=== PATIENT | female | born 1980 | race African-American/Black ===

== ENCOUNTER 2021-07-21 18:23 | Observation (INO) | payer MEDICAID ==
[~2021-07-21] VITALS: Ht 167.6 cm; Wt 96.2 kg
[2021-07-21 20:40] LABS: BASOPHILS % 0.4 % (0.0-2.0); EOSINOPHILS % 0.7 % (0.0-5.0); HEMATOCRIT. 35.9 % (36.0-48.0); HEMOGLOBIN. 12.2 g/dL (12.0-16.0); LYMPHOCYTES % 25.3 % (20.0-50.0); MEAN CORPUSCULAR HEMOGLOBIN 30.9 pg (28.0-32.0); MEAN CORPUSCULAR VOLUME 90.6 fL (81.0-99.0); MEAN PLATELET VOLUME 9.6 fl (7.4-10.4); MONOCYTES % 10.9 % (2.0-8.0); NEUTROPHILS % 62.7 % (40.0-76.0); PLATELET 207 x1000/uL (130-400); RED BLOOD CELL COUNT 3.96 mill/uL (4.2-5.4); RED CELL DISTRIBUTION WIDTH 15.2 % (11.6-14.6)
[2021-07-21 20:43] LABS: CLARITY URINE CLEAR (CLEAR); COLOR URINE YELLOW (YELLOW); KETONES URINE NEGATIVE (NEGATIVE); LEUKOCYTE ESTERASE URINE NEGATIVE (NEGATIVE); NITRITE URINE NEGATIVE (NEGATIVE); OCCULT BLOOD URINE NEGATIVE (NEGATIVE); PROTEIN URINE NEGATIVE (NEGATIVE); SPECIFIC GRAVITY URINE 1.007 (1.005-1.030); UROBILINOGEN URINE 0.2 E.U./dL (0.2-1.0)
[2021-07-21 20:57] LABS: CHLORIDE 111 mEq/L (98-107)
[2021-07-21 20:59] LABS: D-DIMER 4.46 mg/L FEU (<0.50); INR 0.9; PARTIAL THROMBOPLASTIN TIME 28.9 sec (23.4-31.0); PROTHROMBIN TIME 9.8 sec (9.6-11.0)
[2021-07-21] MEDS ORDERED: PNV1TABL76 PO (22:10)
[2021-07-21] MEDS ORDERED: FOLI-43 PO (22:10)
[2021-07-21] MEDS ORDERED: ASPI-1497 PO (22:10)
[2021-07-21] MEDS ORDERED: BETAMETHASONE ACET/BETAMET 30 MG/5 ML VIAL IM NR (22:30)
== END 2021-07-21 23:20 | disposition home or self-care (01) ==
LOC: 8 EST LDRP 18:23
PROVIDERS: ADMIT Obstetrics & Gynecology; ATTEND Obstetrics & Gynecology
DX: O26.893 Other specified pregnancy related conditions, third trimester (principal); R03.0 Elevated blood-pressure reading, without diagnosis of hypertension; O09.523 Supervision of elderly multigravida, third trimester; Z79.01 Long term (current) use of anticoagulants; Z3A.35 35 weeks gestation of pregnancy
CPT/HCPCS: 59025; 76805; 76810; 76818; 80053; 81003; 84550; 85025; 85379; 85384; 85610; 85730; 96372; G0378; J0702; 76815; 99281

== ENCOUNTER 2021-07-22 22:48 | Observation (INO) | payer MEDICAID ==
[~2021-07-22] VITALS: Ht 167.6 cm; Wt 96.2 kg
[~2021-07-22 22:48] MED LIST: ASPI-1497 PO; FOLI-43 PO; PNV1TABL76 PO
[2021-07-22] MEDS ORDERED: BETAMETHASONE ACET/BETAMET 30 MG/5 ML VIAL IM NR (23:00)
== END 2021-07-22 23:30 | disposition home or self-care (01) ==
LOC: 8 EST LDRP 22:48
PROVIDERS: ADMIT Obstetrics & Gynecology; ATTEND Obstetrics & Gynecology
DX: O09.523 Supervision of elderly multigravida, third trimester (principal); Z3A.35 35 weeks gestation of pregnancy
CPT/HCPCS: 59025; 96372; G0378

== ENCOUNTER 2021-07-28 19:54 | Inpatient (IN) | payer MEDICAID ==
[~2021-07-28] VITALS: Ht 167.6 cm; Wt 96.2 kg
[2021-07-28] MEDS ORDERED: VIT1TABL62 PO (21:08)
[2021-07-28] MEDS ORDERED: FERR325T6 PO (21:08)
[2021-07-28] MEDS ORDERED: METHYLERGONOVINE MALEATE 0.2 MG/ML IM PRN (21:15)
[2021-07-28] MEDS ORDERED: DEXT 5%/LR + PITOCIN 20UNITS/L 1,000 ML IV SCH (21:15)
[2021-07-28] MEDS ORDERED: NALOXONE HCL 0.4 MG/ML 1ML VIAL IM PRN (21:15)
[2021-07-28] MEDS ORDERED: CARBOPROST TROMETHAMINE 250 MCG/ML AMPUL IM PRN (21:15)
[2021-07-28] MEDS: LACTATED RINGERS 1,000 ML IV SCH (21:30)
[2021-07-28 22:16] LABS: BASOPHILS % 0.4 % (0.0-2.0); EOSINOPHILS % 0.3 % (0.0-5.0); HEMATOCRIT. 34.7 % (36.0-48.0); LYMPHOCYTES % 27.8 % (20.0-50.0); MEAN CORPUSCULAR HEMOGLOBIN 30.7 pg (28.0-32.0); MEAN PLATELET VOLUME 9.6 fl (7.4-10.4); MONOCYTES % 9.5 % (2.0-8.0); PLATELET 210 x1000/uL (130-400); RED CELL DISTRIBUTION WIDTH 15.4 % (11.6-14.6)
[2021-07-28 22:17] LABS: CHLORIDE 108 mEq/L (98-107)
[2021-07-28 22:21] LABS: CLARITY URINE CLOUDY (CLEAR); COLOR URINE YELLOW (YELLOW); KETONES URINE 1+ (NEGATIVE); LEUKOCYTE ESTERASE URINE TRACE (NEGATIVE); NITRITE URINE NEGATIVE (NEGATIVE); OCCULT BLOOD URINE NEGATIVE (NEGATIVE); PROTEIN URINE 1+ (NEGATIVE); SPECIFIC GRAVITY URINE 1.012 (1.005-1.030)
[2021-07-28 22:25] LABS: INR 0.9; PARTIAL THROMBOPLASTIN TIME 27.6 sec (23.4-31.0); PROTHROMBIN TIME 9.9 sec (9.6-11.0)
[2021-07-28 22:49] LABS: *BARBITURATES SCREEN URINE NEGATIVE (NEGATIVE); *BENZODIAZEPINES SCREEN URINE NEGATIVE (NEGATIVE)
[2021-07-28 22:50] LABS: *AMPHETAMINES SCREEN URINE NEGATIVE (NEGATIVE); *COCAINE SCREEN URINE NEGATIVE (NEGATIVE); CANNABINOID URINE SCREEN NEGATIVE (NEGATIVE); METHADONE URINE SCREEN NEGATIVE (NEGATIVE); OPIATES URINE SCREEN NEGATIVE (NEGATIVE); PHENCYCLIDINE URINE SCREEN NEGATIVE (NEGATIVE)
[2021-07-29 07:29] LABS: HEPATITIS B SURFACE ANTIGEN NEGATIVE
[2021-07-29] MEDS: LACTATED RINGERS 1,000 ML IV SCH (08:59)
[2021-07-29] MEDS ORDERED: MORPHINE SULFATE/PF 1MG/ML 10ML AMP ONE (09:50)
[2021-07-29] MEDS ORDERED: FENTANYL CITRATE/PF 50MCG/ML 2ML VIAL ONE (09:50)
[2021-07-29] MEDS ORDERED: CEFAZOLIN SODIUM 1000MG/VIAL ONE (09:50)
[2021-07-29] MEDS ORDERED: MEPERIDINE HCL/PF 25MG/ML CPJ IV PRN (10:15)
[2021-07-29] MEDS ORDERED: DIPHENHYDRAMINE 50MG/ML VIAL IV PRN (10:15)
[2021-07-29] MEDS ORDERED: HYDROMORPHONE HCL/PF 2MG/ML CPJ IV PRN (10:15)
[2021-07-29] MEDS ORDERED: BUTORPHANOL TARTRATE 2 MG/ML VIAL IM PRN (10:30)
[2021-07-29] MEDS ORDERED: HYDROCODONE/ACETAMINOPHEN 5/325MG TABLET PO PRN (11:30)
[2021-07-29] MEDS ORDERED: LANOLIN OINT 7GM TUBE TOP PRN (11:30)
[2021-07-29] MEDS ORDERED: HEMORRHOIDAL SUPP PR PRN (11:30)
[2021-07-29] MEDS ORDERED: IBUPROFEN 400MG TABLET PO PRN (11:30)
[2021-07-29] MEDS ORDERED: DIPHENHYDRAMINE 25MG CAPSULE PO PRN (11:30)
[2021-07-29] MEDS: DEXT 5%/LR + PITOCIN 20UNITS/L 1,000 ML IV SCH ×2 (11:41→23:50)
[2021-07-29] MEDS: ONDANSETRON HCL 4MG/2ML INJ IV PRN ×2 (12:08→18:17)
[2021-07-29] MEDS: KETOROLAC 30MG/ML VIAL IV PRN ×2 (12:14→18:18)
[2021-07-29] MEDS ORDERED: LABETALOL HCL 5MG/ML VIAL 20ML IV PRN ×3 (13:15)
[2021-07-29] MEDS: MAGNESIUM 20 G PREMIX (L & D) 500 ML IV SCH ×2 (13:34→21:51)
[2021-07-29 18:15] VITALS: BP 150/110
[2021-07-29 18:30] VITALS: BP 153/104
[2021-07-29 18:45] VITALS: BP 144/103
[2021-07-29 20:00] VITALS: BP 155/93
[2021-07-29 21:00] VITALS: BP 148/100
[2021-07-29 23:30] VITALS: BP 146/99
[2021-07-30] VITALS (8 sets, daily range): BP systolic 140–150; BP diastolic 86–103
[2021-07-30 06:52] LABS: BASOPHILS % 0.1 % (0.0-2.0); EOSINOPHILS % 0.1 % (0.0-5.0); HEMATOCRIT. 33.5 % (36.0-48.0); HEMOGLOBIN. 11.3 g/dL (12.0-16.0); LYMPHOCYTES % 10.2 % (20.0-50.0); MEAN CORPUSCULAR HEMOGLOBIN 30.7 pg (28.0-32.0); MONOCYTES % 8.1 % (2.0-8.0); NEUTROPHILS % 81.5 % (40.0-76.0); PLATELET 176 x1000/uL (130-400); RED BLOOD CELL COUNT 3.68 mill/uL (4.2-5.4); RED CELL DISTRIBUTION WIDTH 15.1 % (11.6-14.6)
[2021-07-30] MEDS: MAGNESIUM 20 G PREMIX (L & D) 500 ML IV SCH (07:23)
[2021-07-30] MEDS: LABETALOL HCL 100MG TABLET PO SCH ×2 (07:47→23:40)
[2021-07-30] MEDS: SIMETHICONE 80MG TABLET CHEW PO SCH ×3 (08:49→21:28)
[2021-07-30] MEDS: PRENATAL VIT/FE FUMARATE/FA TABLET PO SCH (08:49)
[2021-07-30] MEDS: FERROUS SULFATE 325MG TABLET PO SCH ×2 (08:50→12:30)
[2021-07-30] MEDS: MAGNESIUM/ALUMINUM HYDROXIDE/SIMETHICONE 30ML UDC PO SCH ×3 (08:50→21:27)
[2021-07-30] MEDS: IBUPROFEN 800MG TABLET PO PRN ×2 (15:28→21:27)
[2021-07-30] MEDS: DOCUSATE SODIUM 100MG CAPSULE PO SCH (21:28)
[2021-07-31 03:00] VITALS: BP 143/83
[2021-07-31] MEDS: FERROUS SULFATE 325MG TABLET PO SCH ×4 (07:30→17:30)
[2021-07-31] MEDS: MAGNESIUM/ALUMINUM HYDROXIDE/SIMETHICONE 30ML UDC PO SCH ×5 (07:30→21:04)
[2021-07-31 08:00] VITALS: BP 151/94
[2021-07-31] MEDS: SIMETHICONE 80MG TABLET CHEW PO SCH ×5 (08:00→21:06)
[2021-07-31] MEDS: IBUPROFEN 800MG TABLET PO PRN ×3 (08:54→21:14)
[2021-07-31] MEDS: LABETALOL HCL 100MG TABLET PO SCH ×3 (08:55→22:22)
[2021-07-31] MEDS: PRENATAL VIT/FE FUMARATE/FA TABLET PO SCH (08:55)
[2021-07-31 10:00] VITALS: BP 144/90
[2021-07-31 12:17] VITALS: BP 137/91
[2021-07-31] MEDS: BISACODYL 10MG SUPP PR PRN (16:07)
[2021-07-31 17:19] VITALS: BP 140/89
[2021-07-31] MEDS: DOCUSATE SODIUM 100MG CAPSULE PO SCH (21:04)
[2021-07-31 22:00] VITALS: BP 135/85
[2021-08-01 05:29] VITALS: BP 125/85
[2021-08-01] MEDS: LABETALOL HCL 100MG TABLET PO SCH ×3 (05:29→22:12)
[2021-08-01] MEDS: FERROUS SULFATE 325MG TABLET PO SCH ×3 (07:30→17:30)
[2021-08-01 08:00] VITALS: BP 155/96
[2021-08-01] MEDS: MAGNESIUM/ALUMINUM HYDROXIDE/SIMETHICONE 30ML UDC PO SCH ×4 (09:54→22:10)
[2021-08-01] MEDS: PRENATAL VIT/FE FUMARATE/FA TABLET PO SCH (09:54)
[2021-08-01] MEDS: SIMETHICONE 80MG TABLET CHEW PO SCH ×4 (09:54→22:11)
[2021-08-01] MEDS: BISACODYL 10MG SUPP PR PRN (09:55)
[2021-08-01 12:00] VITALS: BP 136/82
[2021-08-01] MEDS: IBUPROFEN 800MG TABLET PO PRN ×2 (12:17→22:12)
[2021-08-01 16:00] VITALS: BP 132/85
[2021-08-01 20:00] VITALS: BP 155/89
[2021-08-01] MEDS: DOCUSATE SODIUM 100MG CAPSULE PO SCH (22:12)
[2021-08-02] MEDS ORDERED: LABE100T5 PO (02:22)
[2021-08-02] MEDS ORDERED: IBUP-2030 PO (02:22)
[2021-08-02 03:00] VITALS: BP 123/75
[2021-08-02] MEDS: LABETALOL HCL 100MG TABLET PO SCH (06:06)
[2021-08-02 08:00] VITALS: BP 137/90
== END 2021-08-02 12:30 | disposition home or self-care (01) | DRG 540 ==
LOC: OBSVTOIN 19:54 → 8 EST LDRP 19:54 → 8EST 07-29 17:54
PROVIDERS: ADMIT Obstetrics & Gynecology; ATTEND Obstetrics & Gynecology
PROC: 10D00Z1 Extraction of Products of Conception, Low, Open Approach (ICD-10-PCS; principal; 2021-07-29)
DX: O13.4 Gestational [pregnancy-induced] hypertension without significant proteinuria, complicating childbirth (principal); Z37.2 Twins, both liveborn; O32.1XX1 Maternal care for breech presentation, fetus 1; O30.043 Twin pregnancy, dichorionic/diamniotic, third trimester; Z3A.37 37 weeks gestation of pregnancy; Z20.822 Contact with and (suspected) exposure to COVID-19
CPT/HCPCS: 36415; 80053; 80305; 81003; 83735; 84550; 85025; 85384; 86592; 86703; 86762; 86850; 86900; 87340; 87426; 88307; 99281; J0690; J1885; J2274; J2405; J2590; J3010; J3475; J3490; J7120; A4315